=== PATIENT | male | born 1950 | race Caucasian/White ===

== ENCOUNTER → 2016-12-20 | Outpatient (CLI) | payer BC ==
[2016-12-20 14:14] LABS: CHLORIDE,CL 98 mmol/L (98-110); SODIUM,NA 132 mmol/L (136-146)
== END ==
LOC: MW.CHIM 13:35
PROVIDERS: ATTEND Internal Medicine
DX: Z00.00 Encounter for general adult medical examination without abnormal findings (principal); I10 Essential (primary) hypertension
CPT/HCPCS: 36415; 80053; 80061; 84439; 84443; 85025; G0103

== ENCOUNTER 2019-03-27 10:44 | Day surgery (SDC) | payer MEDICARE, OTHER ==
[~2019-03-27 10:44] MED LIST: Glycopyrrolate 0.2 MG/ML SDV ONE; Lactated Ringers 1,000 ML IV SCH; Lidocaine 2% 5 ML SDV ONE; Neostigmine Methylsulfate 1 MG/ML 5 ML Syringe ONE; Ondansetron 4 MG/2 ML SDV ONE; Propofol 200 MG/20 ML SDV ONE
--- NOTE | 2019-03-27 11:32 | PCM.PREANE ---
Preanesthetic Assessment - Anesthesia/Transfusion/Family Hx Anesthesia History: Prior Anesthesia Without Reaction Family History of Anesthesia Reaction: No Transfusion History: No Prior Transfusion(s) Intubation History: Unknown - Review of Systems General: No Symptoms Pulmonary: No Symptoms Cardiovascular: No Symptoms Gastrointestinal: Diarrhea Neurological: No Symptoms Other: Reports: None - Physical Assessment Height: 5 ft 8 in Weight: 77.111 kg ASA Class: 2 Mental Status: Alert & Oriented x3 Airway Class: Mallampati = 2 Dentition: Reports: Dentures (upper) Thyro-Mental Finger Breadths: 3 Mouth Opening Finger Breadths: 2 ROM/Head Extension: Limited/Partial Lungs: Clear to Auscultation, Normal Respiratory Effort Cardiovascular: Irregular Rhythm - Allergies Allergies/Adverse Reactions: Allergies Allergy/AdvReac Type Severity Reaction Status Date / Time No Known Allergies Allergy Verified 03/25/19 10:06 - Blood Blood Available: No - Anesthesia Plan Pre-Op Medication Ordered: None - Acknowledgements Anesthesia Type Planned: MAC Pt an Appropriate Candidate for the Planned Anesthesia: Yes Alternatives and Risks of Anesthesia Discussed w Pt/Guardian: Yes Pt/Guardian Understands and Agrees with Anesthesia Plan: Yes PreAnesthesia Questionnaire HEENT History: Reports: Other (See Below) Other HEENT History: reading glasses, upper denture Cardiovascular History: Reports: Afib (new onset, did not know about it), Hypertension Respiratory History: Reports: None Gastrointestinal History: Reports: Chronic Diarrhea Genitourinary History: Reports: None Musculoskeletal History: Reports: Fracture Other Musculoskeletal History: hx fx rt leg Neurological History: Reports: None Psychiatric History: Reports: Anxiety, Depression Endocrine/Metabolic History: Reports: None Hematologic History: Reports: None Immunologic History: Reports: None Oncologic (Cancer) History: Reports: None Dermatologic History: Reports: None - Past Surgical History Head Surgeries/Procedures: Reports: None HEENT Surgical History: Reports: Tonsillectomy Cardiovascular Surgical History: Reports: None Respiratory Surgical History: Reports: None GI Surgical History: Reports: Hernia, Inguinal Male Surgical History: Reports: None Endocrine Surgical History: Reports: None Neurological Surgical History: Reports: None Musculoskeletal Surgical History: Reports: None Oncologic Surgical History: Reports: None Dermatological Surgical History: Reports: Other (See Below) - SUBSTANCE USE Smoking Status *Q: Former Smoker Tobacco Use Within Last Twelve Months: Snuff/Dip Recreational Drug Type: Reports: Marijuana/Hashish Recreational Drug Last Use: 3 days ago - HOME MEDS Home Medications: Home Meds Metoprolol Succinate 50 mg PO DAILY 03/25/19 [History] amLODIPine Besylate [Amlodipine Besylate] 10 mg PO DAILY 03/25/19 [History] - CURRENT (IN HOUSE) MEDS Current Meds: Current Medications Lactated Ringer's (Ringers, Lactated) 1,000 mls @ 125 mls/hr IV ASDIRECTED ALICIA Discontinued Medications Glycopyrrolate (Robinul) Confirm Administered Dose 0.4 mg .ROUTE .STK-MED ONE Stop: 03/27/19 08:54 Lidocaine (Xylocaine-Mpf 2%) Confirm Administered Dose 5 ml .ROUTE .STK-MED ONE Stop: 03/27/19 08:36 Neostigmine Methylsulfate (Neostigmine) Confirm Administered Dose 5 mg .ROUTE .STK-MED ONE Stop: 03/27/19 08:54 Ondansetron HCl (Zofran) Confirm Administered Dose 4 mg .ROUTE .STK-MED ONE Stop: 03/27/19 08:54 Propofol (Diprivan 20 Ml) Confirm Administered Dose 400 mg .ROUTE .STK-MED ONE Stop: 03/27/19 08:37
--- NOTE | 2019-03-27 12:33 | PCM.OPNOTE ---
- General Post-Op/Procedure Note Date of Surgery/Procedure: 03/27/19 Operative Procedure(s): Colonoscopy with cold sigmoid colon polypectomy Pre Op Diagnosis: Desire for colorectal cancer screening Post-Op Diagnosis: Sigmoid polyp. Mild sigmoid diverticulosis with low-grade diverticulitis. Anesthesia Technique: MAC (ASA III) Primary Surgeon: Eladio Tapia Condition: Good Free Text/Narrative:: DICTATION [id number] CPT CODE [id number]
[2019-03-27] MEDS ORDERED: Lactated Ringers 1,000 ML IV SCH (12:45)
--- NOTE | 2019-03-27 12:56 | OR ---
SURGEON: Eladio Tapia M.D. DATE OF PROCEDURE: 03/27/2019 OPERATION PERFORMED: Colonoscopy with cold sigmoid colon polypectomy. PRIMARY SURGEON: Eladio Tapia M.D. ANESTHESIA: MAC. ASA CLASSIFICATION: III. PREOPERATIVE DIAGNOSIS: Desire for colorectal cancer screening. POSTOPERATIVE DIAGNOSES: 1. Sigmoid polyp. 2. Mild sigmoid diverticulosis. DESCRIPTION OF PROCEDURE: The patient was taken to the endoscopy room and positioned on the endoscopy table in the left lateral decubitus position. Time-out was called for appropriate identification of patient and procedure. Monitored anesthesia care was provided. The colonoscope was inserted into the rectum and advanced with minimal difficulty to the cecum. The colonoscope was retroflexed to visualize the ascending colon from below, then straightened, and slowly withdrawn. The cecum, ascending colon, hepatic flexure, transverse colon, splenic flexure, and descending colon showed no tumors, polyps, diverticula, or angiodysplastic changes. A few small scattered diverticula were noted in the sigmoid colon and there was a little bit of erythema there suggesting a low-grade diverticulitis. No stricture, spasm, or bleeding was noted. One polyp was encountered in the distal sigmoid colon and removed with cold biopsy forceps. No significant bleeding was noted. The colonoscope was then withdrawn to the rectum and retroflexed to visualize the anal orifice from above. No tumors or polyps. No acute hemorrhoids were noted. The colonoscope was then straightened, the rectum aspirated, and the colonoscope removed. The patient tolerated the procedure well and was taken to recovery room in stable condition. BUTCH / LEILA /[id number]
== END 2019-03-27 13:48 | disposition home or self-care (01) ==
LOC: MW.SDS 10:44
PROVIDERS: ATTEND Surgery
DX: R19.4 Change in bowel habit (principal); K63.5 Polyp of colon; K57.30 Diverticulosis of large intestine without perforation or abscess without bleeding; I48.91 Unspecified atrial fibrillation; R63.4 Abnormal weight loss; I10 Essential (primary) hypertension; F41.8 Other specified anxiety disorders; Z87.891 Personal history of nicotine dependence; Z80.3 Family history of malignant neoplasm of breast; Z79.899 Other long term (current) drug therapy; Z98.890 Other specified postprocedural states
CPT/HCPCS: 45380; J2001; J2704; J7120; J2405; J3490

== ENCOUNTER 2021-02-05 08:57 | Emergency (ER) | payer MEDICARE, OTHER ==
--- NOTE | 2021-02-05 09:47 | CR ---
HISTORY: Left foot pain. Injury. TECHNIQUE: Two views of the left foot. COMPARISON: No prior. FINDINGS: Advanced 1st MTP joint hypertrophic degenerative changes with prominent osteophyte formation. Findings predispose to hallux rigidus. There is no acute fracture. A small plantar calcaneal spur is present. No radiopaque foreign body or soft tissue gas. IMPRESSION: 1. 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 2. No acute fracture. Dictated by Jaxon Stewart MD @ Feb 05 2021 9:43AM Signed by Dr. Jaxon Stewart @ Feb 05 2021 9:45AM
--- NOTE | 2021-02-05 10:10 | EDM.PDOC ---
ED HPI GENERAL MEDICAL PROBLEM - General Chief Complaint: Lower Extremity Injury/Pain Stated Complaint: LT FOOT INJURY Time Seen by Provider: 02/05/21 09:18 - History of Present Illness INITIAL COMMENTS - FREE TEXT/NARRATIVE: 70-year-old male he is on Eliquis he is presenting with left foot pain since yesterday. Patient was moving a lawnmower and dropped it on the left foot and he now is moderate pain in the left foot worsens with attempted ambulation it was improved some by an old oxycodone that he took earlier this morning. No fall no other injury. Pain currently moderate but become severe with ambulation. Right Foot Pain Score (Numeric/FACES): 7 - Related Data Allergies Allergy/AdvReac Type Severity Reaction Status Date / Time No Known Allergies Allergy Verified 02/05/21 09:16 Home Meds: Home Meds Metoprolol Succinate 50 mg PO DAILY 03/25/19 [History] amLODIPine Besylate [Amlodipine Besylate] 10 mg PO DAILY 03/25/19 [History] Apixaban [Eliquis] 5 mg PO DAILY 02/05/21 [History] Hydrocodone/Acetaminophen [Hydrocodone-Acetamin 5-300 mg] 1 each PO Q6HR PRN #9 tablet 02/05/21 [Rx] Past Medical History HEENT History: Reports: Other (See Below) Other HEENT History: reading glasses, upper denture Cardiovascular History: Reports: Afib, Hypertension Respiratory History: Reports: None Gastrointestinal History: Reports: Chronic Diarrhea Genitourinary History: Reports: None Musculoskeletal History: Reports: Fracture Other Musculoskeletal History: hx fx rt leg Neurological History: Reports: None Psychiatric History: Reports: Anxiety, Depression Endocrine/Metabolic History: Reports: None Hematologic History: Reports: None Immunologic History: Reports: None Oncologic (Cancer) History: Reports: None Dermatologic History: Reports: None - Infectious Disease History Infectious Disease History: Reports: Chicken Pox, Measles, Mumps - Past Surgical History Head Surgeries/Procedures: Reports: None HEENT Surgical History: Reports: Tonsillectomy Cardiovascular Surgical History: Reports: None Respiratory Surgical History: Reports: None GI Surgical History: Reports: Hernia, Inguinal Male Surgical History: Reports: None Endocrine Surgical History: Reports: None Neurological Surgical History: Reports: None Musculoskeletal Surgical History: Reports: None Oncologic Surgical History: Reports: None Dermatological Surgical History: Reports: Other (See Below) Social & Family History - Tobacco Use Tobacco Use Status *Q: Never Tobacco User - Caffeine Use Caffeine Use: Reports: None - Recreational Drug Use Recreational Drug Use: No Review of Systems - Review of Systems Review Of Systems: Comprehensive ROS is negative, except as noted in HPI. ED EXAM, GENERAL - Physical Exam Exam: See Below Free Text/Narrative:: General Appearance: No acute distress, appears comfortable Skin: No rash HEENT: Normocephalic/atraumatic, sclera anicteric, mucous membranes moist Neck: Normal range of motion Musculoskeletal: 2+ DP pulse on the left left foot is neurovascularly intact there is no focal tenderness or deformity in the ankle with a midfoot or the lateral forefoot there is a very focal area of tenderness in the swelling just proximal to the first MTP joint he has no pain with percussion of the tip of the toe. Range of motion at the MTP joint is reduced. Tendon evaluation appears i ntact. Neurologic: Awake, alert, no obvious deficits, moving all extremities Psychiatric: Appropriate, cooperative Course - Vital Signs Last Recorded V/S: Last Vital Signs Temp 96.8 F L 02/05/21 09:17 Pulse 88 02/05/21 09:17 Resp 16 02/05/21 09:17 BP 135/92 H 02/05/21 09:17 Pulse Ox 97 02/05/21 09:17 Departure - Departure Time of Disposition: 10:05 Disposition: Home, Self-Care 01 Condition: Good Clinical Impression: Foot contusion, Hypertrophic arthritis - Discharge Information *PRESCRIPTION DRUG MONITORING PROGRAM REVIEWED*: Not Applicable *COPY OF PRESCRIPTION DRUG MONITORING REPORT IN PATIENT SHER: Not Applicable Prescriptions: Hydrocodone/Acetaminophen [Hydrocodone-Acetamin 5-300 mg] 1 each PO Q6HR PRN #9 tablet PRN Reason: Pain Instructions: Contusion, [id number], Arthritis, [id number], RICE Therapy for Routine Care of Injuries, [id number] Additional Instructions: Please wear the postoperative shoe for the next 3 to 4 days to prevent bending at the joint and allow referred to heal. I encourage you to use ice rest and elevation for the next 2 days. If you are still having symptoms this week please follow-up with your primary care doctor. If you do not have a primary care doctor you can be seen at one of the primary clinics listed below. [facility] [address] [place] [id number] [facility] [address] [place] [id number] The following information is given to patients seen in the emergency department who are being discharged to home. This information is to outline your options for follow-up care. We provide all patients seen in our emergency department with a follow-up referral. The need for follow-up, as well as the timing and circumstances, are variable depending upon the specifics of your emergency department visit. If you don't have a primary care physician on staff, we will provide you with a referral. We always advise you to contact your personal physician following an emergency department visit to inform them of the circumstance of the visit and for follow-up with them and/or the need for any referrals to a consulting specialist. The emergency department will also refer you to a specialist when appropriate. This referral assures that you have the opportunity for follow-up care with a specialist. All of these measure are taken in an effort to provide you with optimal care, which includes your follow-up. Under all circumstances we always encourage you to contact your private physician who remains a resource for coordinating your care. When calling for follow-up care, please make the office aware that this follow-up is from your recent emergency room visit. If for any reason you are refused follow-up, please contact the [facility] Emergency Department at and asked to speak to the emergency department charge nurse. Sepsis Event Note (ED) - Evaluation Sepsis Screening Result: No Definite Risk - Focused Exam Vital Signs: Vital Signs Temp Pulse Resp BP Pulse Ox 02/05/21 09:17 96.8 F L 88 16 135/92 H 97 - Assessment/Plan Assessment:: 70-year-old male presenting with traumatic injury to left foot. Foot is neurovascularly intact no skin violation. X-ray ordered to further assess for any associated fracture. X-ray demonstrates hypertrophic arthritis of the first MTP joint but no acute fracture. Given clear preceding trauma no concern for gout no concern for septic arthritis. Patient discharged with a couple tabs of [place] his request as well as postop shoe. Patient requires a postoperative shoe for protective and restorative treatment for the next 4 to 5 days to allow his foot contusion to heal.
== END 2021-02-05 10:24 | disposition home or self-care (01) ==
LOC: MW.ED 08:57
DX: S90.32XA Contusion of left foot, initial encounter (principal); M19.172 Post-traumatic osteoarthritis, left ankle and foot; I48.91 Unspecified atrial fibrillation; I10 Essential (primary) hypertension; Z79.01 Long term (current) use of anticoagulants; Z79.899 Other long term (current) drug therapy; W20.8XXA Other cause of strike by thrown, projected or falling object, initial encounter
CPT/HCPCS: 73620-26-LT; 73620-LT; 99283

== ENCOUNTER 2022-10-04 10:53 | Emergency (ER) | payer MEDICARE, OTHER ==
[2022-10-04] MEDS ORDERED: Diazepam 2 MG Tab PO ONE (11:19)
[2022-10-04] MEDS ORDERED: Acetaminophen/HYDROcodone 325-5 MG Tab PO ONE (11:19)
== END 2022-10-04 12:48 | disposition home or self-care (01) ==
LOC: MW.ED 10:53
DX: S20.219A Contusion of unspecified front wall of thorax, initial encounter (principal); F17.210 Nicotine dependence, cigarettes, uncomplicated; Z79.899 Other long term (current) drug therapy; Z79.01 Long term (current) use of anticoagulants; W00.9XXA Unspecified fall due to ice and snow, initial encounter
CPT/HCPCS: 70450; 71045; 99284; A9270

== ENCOUNTER 2023-06-24 09:33 | Emergency (ER) | payer MEDICARE, OTHER ==
[2023-06-24] MEDS ORDERED: Morphine 4 MG/ML Syringe IVPUSH ONE ×2 (09:43→11:27)
[2023-06-24 09:59] LABS: BASOPHILS PERCENT AUTO 0.2 % (0.0-1.5); EOSINOPHILS PERCENT AUTO 0.4 % (0.0-7.0); HEMATOCRIT 44.9 % (38.0-50.0); HEMOGLOBIN 15.8 g/dL (13.0-17.0); LYMPHOCYTES ABSOLUTE AUTO 0.9 K/uL (0.6-2.4); LYMPHOCYTES PERCENT AUTO 7.9 % (16.0-40.0); MEAN CORPUSCULAR HEMOGLOBIN 34.7 pg (27.0-32.0); MEAN CORPUSCULAR HGB CONC 35.2 g/dL (31.0-37.0); MEAN CORPUSCULAR VOLUME 98.7 fL (80.0-98.0); MONOCYTES ABSOLUTE AUTO 1.9 K/uL (0.0-0.8); NEUTROPHILS ABSOLUTE AUTO 8.5 K/uL (1.4-5.7); NEUTROPHILS PERCENT AUTO 74.5 % (48.0-80.0); NRBC ABSOLUTE 0 K/uL; PLATELET COUNT,PLT 327 K/uL (150-400); RED BLOOD CELL COUNT 4.55 M/uL (4.50-5.90); WHITE BLOOD CELL COUNT,WBC 11.35 K/uL (4.0-11.0)
[2023-06-24 10:06] LABS: INR 1.17 (0.86-1.11)
[2023-06-24] MEDS: Acetaminophen 325 MG Tab PO ONE ×2 (10:12→10:24)
[2023-06-24 10:20] LABS: BILIRUBIN TOTAL 1.2 mg/dL (0.2-1.0); CALCIUM 9.5 mg/dL (8.5-10.1); CARBON DIOXIDE,CO2 25.7 mmol/L (21.0-32.0); CREATININE 0.9 mg/dL (0.8-1.3); EST CRCL DRUG DOSING (CG) 73.89 mL/min; MAGNESIUM 1.6 mg/dL (1.8-2.4); POTASSIUM,K 3.8 mmol/L (3.5-5.1); PROTEIN TOTAL,TP 8.1 g/dL (6.4-8.2)
== END 2023-06-24 13:45 | disposition home or self-care (01) ==
LOC: MW.ED 09:33
DX: S42.001A Fracture of unspecified part of right clavicle, initial encounter for closed fracture (principal); I48.91 Unspecified atrial fibrillation; I10 Essential (primary) hypertension; Z79.01 Long term (current) use of anticoagulants; W18.30XA Fall on same level, unspecified, initial encounter
CPT/HCPCS: 36415; 70450; 71045; 72125; 73000; 73502; 73560; 80053; 83735; 85025; 85610; 93971; 96374; 96376; 99284; J2270; A9270-GY